=== PATIENT | female | born 1975 | race African-American/Black ===

== ENCOUNTER 2021-01-15 14:51 | Outpatient (CLI) | payer OTHER, SELFPAY ==
--- NOTE | ~2021-01-15 | MM_ITS ---
EXAMINATION: MM screening gustavo BI w louie HISTORY: Screening TECHNIQUE: Craniocaudal and mediolateral oblique 3-D tomosynthesis images were obtained and synthetic 2-D images were generated. CAD analysis was submitted and interpreted. COMPARISON: Comparison to multiple prior studies sequentially, with oldest reviewed study dated 08/21. BREAST PARENCHYMAL COMPOSITION: The breasts are extremely dense, which lowers the sensitivity of mamm ography FINDINGS: There is no evidence of suspicious mass, calcification, or architectural distortion to sugg est malignancy in either breast. There has been no suspicious interval change. IMPRESSION: 1. No mammographic evidence of malignancy. 2. Recommend routine screening mammography in one year. BI-RADS Category 1: Negative Reviewed, dictated and finalized at location A. EVILLE ACTOR
== END 2021-01-15 14:52 | disposition home or self-care (01) ==
LOC: ANHIMG 14:58
PROVIDERS: PCP Family Medicine; Visit Provider Family Medicine
DX: Z12.31 Encounter for screening mammogram for malignant neoplasm of breast (principal)
CPT/HCPCS: 77063; 77067

== ENCOUNTER 2022-11-16 08:54 | Outpatient (CLI) | payer OTHER, SELFPAY ==
--- NOTE | ~2022-11-16 | MM_ITS ---
EXAMINATION: MM screening gustavo BI w louie HISTORY: Screening mammogram TECHNIQUE: Craniocaudal and mediolateral oblique 3-D tomosynthesis images were obtained and synthetic 2-D images were generated. CAD analysis was submitted and interpreted. COMPARISON: 01/15/2021, 02/15/2019, 04/25/2017 bilateral screening mammogram examinations BREAST PARENCHYMAL COMPOSITION: The breasts are extremely dense, which lowers the sensitivity of mamm ography. FINDINGS: There is no evidence of suspicious mass, calcification, or architectural distortion to sugg est malignancy in either breast. There has been no suspicious interval change. IMPRESSION: 1. No mammographic evidence of malignancy. 2. Recommend routine screening mammography in one year. BI-RADS Category 1: Negative Reviewed, dictated and finalized at location A. RUMENT PERSON
== END 2022-11-16 08:55 | disposition home or self-care (01) ==
PROVIDERS: PCP Family Medicine; Visit Provider Family Medicine
DX: Z12.31 Encounter for screening mammogram for malignant neoplasm of breast (principal)
CPT/HCPCS: 77063; 77067

== ENCOUNTER 2023-03-18 13:23 | Emergency (ER) | payer OTHER, SELFPAY ==
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
[2023-03-18 13:49] VITALS: BP 153/79; PULSE 81; RESP 12; TEMP 36.4; O2SAT 98
[2023-03-18] MEDS: IBUPROFEN 600 MG TABLET PO (15:00)
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
== END 2023-03-18 16:14 | disposition home or self-care (01) ==
PROVIDERS: Emergency Provider General Practice; PCP Family Medicine
DX: S16.1XXA Strain of muscle, fascia and tendon at neck level, initial encounter (principal); S29.019A Strain of muscle and tendon of unspecified wall of thorax, initial encounter; M47.814 Spondylosis without myelopathy or radiculopathy, thoracic region; M47.812 Spondylosis without myelopathy or radiculopathy, cervical region; V43.03XA Car driver injured in collision with pick-up truck in nontraffic accident, initial encounter
CPT/HCPCS: 72072; 72125; 99284; A9270

== ENCOUNTER 2023-11-29 08:39 | Outpatient (CLI) | payer OTHER, SELFPAY ==
--- NOTE | ~2023-11-29 | MM_ITS ---
EXAMINATION: MM screening [facility] BI w louie HISTORY: Screening mammogram TECHNIQUE: Craniocaudal and mediolateral oblique 3-D tomosynthesis images were obtained and synthetic 2-D images were generated. CAD analysis was submitted and interpreted. COMPARISON: 11/08/2022, 01/15/2021, 02/15/2019 BREAST PARENCHYMAL COMPOSITION: The breasts are extremely dense, which lowers the sensitivity of mamm ography. FINDINGS: No suspicious mass, calcification, or architectural distortion are identified in either alexis ast to suggest malignancy. There has been no suspicious interval change. IMPRESSION: 1. No mammographic evidence of malignancy. 2. Recommend routine screening mammography in one year. BI-RADS Category 1: Negative Reviewed, dictated and finalized at location A. OR RESEARCH ASSOCIATE
== END 2023-11-29 08:40 | disposition home or self-care (01) ==
LOC: ANHIMG 08:40
PROVIDERS: PCP Family Medicine; Visit Provider Family Medicine
DX: Z12.31 Encounter for screening mammogram for malignant neoplasm of breast (principal)
CPT/HCPCS: 77063; 77067

== ENCOUNTER 2024-12-18 08:05 | Outpatient (CLI) | payer OTHER, SELFPAY ==
--- NOTE | ~2024-12-18 | MM_ITS ---
EXAMINATION: MM screening [facility] BI w louie HISTORY: Screening TECHNIQUE: Craniocaudal and mediolateral oblique 3-D tomosynthesis images were obtained and synthetic 2-D images were generated. CAD analysis was submitted and interpreted. COMPARISON: Comparison to multiple prior studies sequentially, with oldest reviewed study dated 11/2015. BREAST PARENCHYMAL COMPOSITION: Dense: The breasts are extremely dense, which lowers the sensitivity of mammography. FINDINGS: There is no evidence of suspicious mass, calcification, or architectural distortion to sugg est malignancy in either breast. There has been no suspicious interval change. IMPRESSION: 1. No mammographic evidence of malignancy. 2. Recommend routine screening mammography in one year. BI-RADS Category 1: Negative Reviewed, dictated and finalized at location A. GER MANAGING
--- OUTSIDE RECORDS SUMMARY | 2024-12-18 08:30 | XMS_ITS | Referral Summary ---
Author Organization [facility] Address [address] [place] [address] Care Team Providers Care Side Door Worker Name Role Phone Sophie Taylor MD Primary Care Provider [phone] Encounters Date Type Department Care Team Description 09/17/2024 9:45 AM CDT [facility] [address] [place] [address] Tabatha Black MD Well woman exam with routine gynecological exam (Primary Dx); Perimenopause from Last 3 Months Allergies Active Allergy Reactions Criticality Noted Date Comments Amoxicillin Rash Medium Reaction: Rash, Potassium Rash Medium Reaction: Rash, Medications multivitamin capsule Take 1 capsule by mouth daily Active Active Problems No known active problems Social History Tobacco Use Types Packs/Day Years Used Date Smoking Tobacco: Never Smokeless Tobacco: Never Alcohol Use Standard Drinks/Week Comments No 0 (1 standard drink = 0.6 oz pur e alcohol) Humiliation, Afraid, Rape, and Kick questionnair e Answer Date Recorded Fear of Current or Ex-Partner No Emotionally Abused No 07/08/2020 Physically Abused No 07/08/2020 Sexually Abused No 07/08/2020 Social Connection and Isolation Panel [NHANES] A nswer Date Recorded Frequency of Communication with Friends and Fami ly Not on file 07/08/2020 Frequency of Social Gatherings with Friends and Family Not on file 07/08/2020 Attends [employer] Services Not on file 07/08 Active Member of Clubs or Organizations Not on f ile 07/08/2020 Attends Club or Organization Meetings Not on pooja e 07/08/2020 Marital Status 07/08/2020 Exercise Vital Sign Answer Date Recorde d Days of Exercise per Week 3 days 2019 Minutes of Exercise per Session 20 min 07/08/2020 Comments No Sex and Gender Information Value Date Recorded Sex Assigned at Not on file 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 Gender Identity Not on file Sexual Orientation Not on file Last Filed Vital Signs Vital Sign Reading Time Taken Comments Blood Pressure 128/82 09/17/2024 9:54 AM CDT Pulse 72 02/03/2023 9:21 AM CDT Temperature - - Respiratory Rate - - Oxygen Saturation - - Inhaled Oxygen Concentration - - Weight 74.4 kg (164 lb) 09/17/2024 9:54 AM CDT Height 157.5 cm (5' 2 ) 09/17/2024 9:54 AM CDT Body Mass Index 30 09/17/2024 9:54 AM CDT Plan of Treatment Not on file Procedures Procedure Name Priority Date/Time Associated Diagnosis Comments PAP AND HIGH RISK HPV, REFLEX TO GENOTYPING Routine 09/07/2022 12:19 PM CDT Well woman exam with routine gynecological exam from Last 3 Months or Most Recently Relevant to Health Maintenance Results * Pap and High Risk HPV, reflex to Genotyping (09/07/2022 12:19 PM CDT) Thin prep (Pap test) 09/07/2022 12:19 PM CDT 09/15/2022 8:20 AM CDT Narrative PATHOLOGY [facility] - 09/18/2022 2:32 PM CDT EPIC results best viewed via link to PDF [address] ??[id number] Tele: ?? Marisa Gandhi MD - Oven Worker CYTOLOGY REPORT Note to Patients: This report may contain a detailed description of human tissue sent by a health care provider to the laboratory for pathologic evaluation. The content of this report is essential for diagnosis and may provide important critical findings. This information may be unfamiliar to patients to review without a medical professional present. It is advised that the patient review this report in the presence of a health care provider who can answer questions and explain the details. Patient Name: ??SUSHIL COHEN Address: ??[address], [place], [place] [address] Gender: ??F : ??1975 (Age: 46) Service: ?? Location: ?? Hospital #: ??[id number] [place] [place] Taken: ??09/07/2022 Reported: ??09/18/2022 Physician(s): ? Tabatha Black M.D. FINAL DIAGNOSIS: Specimen Type: ?- ThinPrep Pap and HPV w/ reflex Genotyping Statement of Specimen Adequacy: Source: ??Cervical/Endocervical ?- Satisfactory for interpretation ?- Endocervical /Transformation Zone component present ?- Case screened using computer assisted imaging technology General Categorization: ?- Negative for intraepithelial lesion or malignancy xbb/09/18/2022 14:32GIORGI Alegre (ASCP) Report Reviewed and Electronically Signed By ??GIORGI Alegre (ASCP)Clerical Data Follow A; [id number] DIAGNOSIS COMMENT: ? Ancillary Testing: HPV High Risk Group (16, 18, 31, 33, 35, 39, 45, 51, 52, 56, 58, 59, 66 and 68) ? - Not Detected ? Reference Range: ? Not Detected This test was performed using the SANDY 4800 CLINICAL DIAGNOSIS AND HISTORY Last Menstrual Period: 05/29/21 REPORT IMAGES AND/OR SCANNED DOCUMENTS ONLY VIEWABLE IN PDF FORMAT The Pap test is a screening test used to aid in the detection of cervical cancer and its precursors. It should not be the sole means by which malignant and premalignant lesions are diagnosed. ??Both false negative and false positive results may occur. ??It also has poor sensitivity for the detection of endometrial lesions and should not be used to evaluate suspected endometrial abnormalities. ??For these reasons it is most important to obtain Pap tests at regular intervals, as recommended by your physician or nurse practitioner. Tabatha Black MD LAB CYTOLOGY ORDERABLES Final Result PATHOLOGY [facility] Laboratory Receiving [address] [place] [address] from Last 3 Months or Most Recently Relevant to Health Maintenance Insurance [facility] HMO/PPO Address: [address] [address] [place] [address] [facility] CHO[employer] [facility]US [facility] H[facility]/PPO Address: [address] [address] [place] [address] Care Teams Side Door Worker Relationship Specialty Start Date End Date Sophie Taylor MD PCP - General Family Medicine 01/23/23
--- OUTSIDE RECORDS SUMMARY | 2024-12-18 08:30 | XMS_ITS | Clinical Summary ---
Author Organization [facility] Address [address] [place] [address] Care Team Providers Care Fish Grader Name Role Phone Sophie Taylor MD Primary Care Provider [phone] Allergies Active Allergy Reactions Criticality Noted Date Comments Amoxicillin Rash Medium Reaction: Rash, Potassium Rash Medium Reaction: Rash, Medications multivitamin capsule Take 1 capsule by mouth daily Active Active Problems No known active problems Encounters Date Type Department Care Team Description 09/17/2024 9:45 AM CDT [facility] at [address] [place] [address] Tabatha Black MD Well woman exam with routine gynecological exam (Primary Dx); Perimenopause from Last 3 Months Surgical History Surgery Date Site/Laterality Comments SECTION 11/20/2005 - 11/19/2006 : Medical History Medical History Date Comments 2006 ; Comme nts: Marycarmen, arrest of dilation/descent; Outcome: 40 week 6 lb(s) 2 oz Female Family History Medical History Relation Name Comments Prostate cancer Father Cancer, pros crockett; Hypertension Mother Hypertension; Relation Name Status Comments Father Alive Mother Social History Tobacco Use Types Packs/Day Years [...] and Family Not on file 07/08/2020 Attends [employer] Not on file 07/08 Active Member [...] on file 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 Gender Identity Not on file Sexual Orientation Not on file Obstetrics History Para Term AB IAB SAB Ectopic Multiple Livin g Live Births 1 1 1 1 1 Date Outcome GA Total Labor Labor/2nd/3rd Weight Sex Type Anes PTL Maria Elena A1 A5 Name Clin 2005 Term 40w 0d 2.778 kg (6 lb 2 oz) F CS-LT ranv N Living Complications:Other (Comment ) Comments Arrest of Descent/Dialation Last Filed Vital Signs Vital Sign Reading [...] 09/17/2024 9:54 AM CDT Plan of Treatment Health Maintenance Due Date Last Done Comments Breast Cancer Screening-Mammogram 1975 Colon Cancer Screening-Colonoscopy 1975 Depression Screening 1975 Hepatitis C Screening 1975 DTaP/Tdap/Td Vaccine (1 - Tdap) 1984 Hepatitis B Screening 1991 Zoster Vaccine (1 of 2) 2023 Influenza Vaccine (#1) 2024 Cervical Cancer Screening 09/07/2025 09/07/2022 Regular Well Visit/Exam 18-64 09/17/2025 09/17/2024, 09/13/2023, 09/07/2022, Additional history exists Pneumococcal vaccine <65 Aged Out No longer eligible based on patient's age to complete this topic Procedures Procedure Name Priority Date/Time Associated Diagnosis [...] CDT 09/15/2022 8:20 AM CDT Narrative PATHOLOGY [facility] - 09/18/2022 2:32 PM CDT EPIC results best viewed via link to PDF [address] ??[address] Tele: ?? Marisa Gandhi MD - Frame Tender CYTOLOGY REPORT Note to Patients: This report [...] and explain the details. Patient Name: ??SUSHIL COHENMacie Address: ??[address], [place], [place] [address] Gender: ??F : ??1975 (Age: 46) Service: ?? Location: ?? Hospital #: ??[id number] Patient Type: ??[facility] SPECIMEN Taken: ??09/07/2022 Reported: ??09/18/2022 Physician(s): ? [...] MD LAB CYTOLOGY ORDERABLES Final Result PATHOLOGY [facility] Laboratory Receiving [address] [place] [address] from Last 3 Months or Most Recently Relevant to Health Maintenance [address] [place] [address] [facility] [address] [place] [address] [facility] CHOICE PLUS Care Teams Fish Grader Relationship Specialty Start Date End Date Sophie Taylor MD PCP - General Family Medicine 01/23/23
== END 2024-12-18 08:06 | disposition home or self-care (01) ==
LOC: ANHIMG 08:16
PROVIDERS: PCP Family Medicine; Visit Provider Family Medicine
DX: Z12.31 Encounter for screening mammogram for malignant neoplasm of breast (principal)
CPT/HCPCS: 77063; 77067